=== PATIENT | male | born 1950 | race Caucasian/White ===

== ENCOUNTER → 2025-10-10 | Outpatient (REF) | payer MEDICARE ==
[2025-10-10 13:53] LABS: PLATELET COUNT, AUTOMATED 206 10^3/uL (150-450)
[2025-10-10 13:57] LABS: PSA SCREENING 1.33 NG/ML (< 4.00)
[2025-10-10 14:02] LABS: ALT/SGPT 24.0 U/L (7.0-40); AST/SGOT 19.0 U/L (<34); CALCIUM LEVEL 9.6 MG/DL (8.3-10.6); CARBON DIOXIDE LEVEL 29.0 MMOL/L (20-31); CHLORIDE LEVEL 103.0 MMOL/L (98-107); CHOLESTEROL LEVEL 242.0 MG/DL (<200); CHOLESTEROL RISK RATIO 5.24 (<5); CREATININE FOR GFR 1.16 MG/DL (0.70-1.30); GLOMERULAR FILTRATION RATE 64.9 (>42); LDL CHOLESTEROL 171.7 MG/DL (<100); NON-HDL-C 195.9 MG/DL; POTASSIUM SERUM 4.9 MMOL/L (3.5-5.1); SODIUM LEVEL 140.0 MMOL/L (136-145); TRIGLYCERIDES LEVEL 121.0 MG/DL (<150)
[2025-10-10 14:20] LABS: ESTIMATED AVERAGE GLUCOSE 126.0 MG/DL (60-110)
== END ==
LOC: M SFHCADAM 09:18
PROVIDERS: ATTEND Family Medicine
DX: M10.9 Gout, unspecified (principal); I11.9 Hypertensive heart disease without heart failure; Z13.1 Encounter for screening for diabetes mellitus; E78.5 Hyperlipidemia, unspecified; Z12.5 Encounter for screening for malignant neoplasm of prostate
CPT/HCPCS: 80053; 80061; 83036; 84550; 85027; G0103